=== PATIENT | female | born 1955 | race Caucasian/White ===

== ENCOUNTER 2017-11-05 16:16 | Observation (INO) ==
--- NOTE | 2017-11-05 16:38 | Emergency Department Note ---
Disposition Clinical Impression: Vertigo Disposition: Admitted As Inpatient Condition: Good General Adult HPI - General Time Seen by Provider: 11/05/17 16:18 Source: patient Mode of arrival: ambulatory Limitations: no limitations Nursing Notes Reviewed: Yes Vital Signs Reviewed: Yes - History of Present Illness HPI Narrative: 62-year-old female persists for evaluation of dizziness. Patient does have a history of acid reflux and GERD and follows with GI. States she woke up 4:00 this morning with room spinning type dizziness. Patient stated that the dizziness appear to be worse with movement and positioning. Noted to occur when standing. Patient reports of nausea but no vomiting. Patient has baseline nausea given her GI symptoms. Patient denies any chest pain. Patient denies any fevers. No specific prodromal URI prior to. No tenderness. No ear pain. No headache or focal weakness/numbness/tingling. Patient does not have a history of these symptoms in the past. - Related Data Allergies Allergy/AdvReac Type Severity Reaction Status Date / Time No Known Allergies Allergy Verified 11/05/17 17:00 All systems ED: reviewed and negative except as stated. Constitutional: Reports: chills. Denies: fever Cardiovascular: Denies: chest pain Respiratory: Denies: cough Gastrointestinal: Reports: nausea. Denies: abdominal pain, vomiting Past Medical History - Past Medical History Source: patient Medical history: Reports: arthritis, GERD Surgical history: Reports: cholecystectomy, herniorrhaphy, orthopedic, other Psychiatric history: Reports: no psych history - Social History Smoking Status: Current every day smoker Physical Exam - General Limitations: no limitations General appearance: alert, in no apparent distress - Head Head exam: atraumatic, normocephalic, normal inspection - Eye Eye exam: Present: normal appearance, PERRL, EOMI. Absent: nystagmus - ENT ENT exam: normal exam, normal oropharynx, mucous membranes moist - Neck Neck exam: Present: normal inspection - Chest Chest inspection: Present: normal inspection, symmetric chest wall rise - Respiratory Respiratory exam: Present: normal lung sounds bilaterally. Absent: respiratory distress - Cardiovascular Cardiovascular exam: Present: regular rate, normal rhythm. Absent: systolic murmur - Abdominal Exam Abdominal exam: Present: soft, Non-Tender - Extremities Exam Extremities exam: Present: normal inspection. Absent: pedal edema - Expanded Lower Extremity Exam Neurovascular/Tendon exam: Present: normal capillary refill - Neurological Exam Neurological exam: Present: alert, oriented X3, CN II-XII intact - Expanded Neurological Exam Patient oriented to: Present: person, place, time Speech: Present: fluid speech Cranial nerves: EOM function (II, III, IV, ): Normal, facial sensation (V): Normal, facial palsy (VII): Normal, spinal accessory function (XI): Normal, tongue deviation (XII): Normal Cerebellar function: finger to nose: Normal (Slow to respond) Motor strength - LUE: 5/5 Motor strength - RUE: 5/5 Motor strength - LLE: 5/5 Motor strength - RLE: 5/5 Sensory exam upper extremity: light touch: Normal Sensory exam lower extremity: light touch: Normal Coma Scale Eye Opening: Spontaneous Coma Scale Motor Response: Obeys Commands Coma Scale Verbal Response: Oriented Coma Scale Total: 15 - Skin Skin exam: Present: warm, dry, intact, normal color Course Course Narrative: Patient seen and examined. Patient appears in no acute distress. Vital stable. Patient's initial complaint was concerning for likely perhaps peripheral vertigo with positioning however on exam cannot necessarily reproduce said symptoms. Patient will be treated with meclizine as well basic labs and troponin given her history of nausea and reflux. CT scan of the head was also obtained. Disposition pending. Vital Signs Temperature 97.9 F 11/05/17 16:55 Pulse Rate 69 11/05/17 16:55 Respiratory Rate 18 11/05/17 16:55 Blood Pressure 146/97 11/05/17 16:55 O2 Sat by Pulse Oximetry 95 11/05/17 16:55 Temperature 97.9 F 11/05/17 16:55 Pulse Rate 66 11/05/17 18:00 Respiratory Rate 18 11/05/17 18:00 Blood Pressure 136/83 11/05/17 18:00 O2 Sat by Pulse Oximetry 100 11/05/17 18:00 Oxygen Delivery Oxygen Delivery Room Air Medical Decision Making - MDM Narrative Medical decision making narrative: Patient was treated symptomatically and ED with no significant improvement. Patient does have findings of chronic microvascular ischemic changes on head CT. Given the patient's hypertension is symptoms. The patient will be admitted for further evaluation with likely MRI as well as optimal medical management. Patient is agreeable with this plan of care. - Lab Data Lab results reviewed: Yes I reviewed the patient's lab results. Result diagrams: 11/05/17 16:40 11/05/17 16:40 Lab Results 11/05/17 11/05/17 Range/Units 16:40 16:40 WBC 6.4 (4.3-11.1) K/mcL RBC 5.04 H (3.82-4.97) M/mcL Hgb 14.3 (11.5-15.4) g/dL Hct 43.7 (35.3-44.9) % MCV 86.7 (83.0-100.0) fL MCH 28.4 (28.0-33.3) pg MCHC 32.7 (31.6-35.5) g/dL RDW 15.5 H (11.5-14.5) % Plt Count 219 (140-400) K/mcL MPV 9.1 L (9.4-12.4) fL Immature Gran % 0.3 (0-4) % Seg Neutrophils % 72.7 % Lymphocytes % 20.9 % Monocytes % 5.1 % Eosinophils % 0.5 % Basophils % 0.5 % Neutrophils # 4.7 (1.6-8.9) K/mcL Lymphocytes # 1.3 (0.6-4.6) K/mcL Monocytes # 0.3 (0.0-1.3) K/mcL Eosinophils # 0.0 (0.0-0.6) K/mcL Basophils # 0.0 (0.0-0.2) K/mcL Sodium 137 (136-145) mEq/L Potassium 4.1 (3.5-5.1) mEq/L Chloride 106 (98-107) mEq/L Carbon Dioxide 26 (23-29) mEq/L BUN 10 (8-23) mg/dL Creatinine 0.93 (0.60-1.20) mg/dL Est GFR ( Amer) > 60 (> 60) Est GFR (Non-Af Amer) > 60 (> 60) BUN/Creatinine Ratio 11 (6-26) Glucose 120 H (70-105) mg/dL Calculated Osmolality 284 (280-300) Calcium 9.2 (8.6-10.3) mg/dL Troponin I < 0.03 (< 0.04) ng/mL - Radiology Data Radiology results reviewed: Yes I reviewed the patient's radiology results. Head CT 11/05/17 16:32 IMPRESSION: No acute intracranial abnormality. Diffuse atrophic changes with findings suggesting chronic microvascular ischemia D/ / Eusebio Mckee MD / Eusebio Mckee MD Interpreting Provider: Eusebio Mckee MD - EKG Data EKG #1 EKG attestation: Yes I reviewed and interpreted this EKG. EKG shows normal: sinus rhythm Rate: normal Rhythm: NSR T wave inversions noted in: aVR, v1 Interpretation: no acute changes S.B.A.Seven - S.B.AArethaRAretha Situation: Demographics Background: Presenting Complaint Assessment: Vital Signs, Course and respsone to treatment, Patient/Family Expectation Recommendation: Barrier(s) to disposition, Recommendation based on pending studies, treatments, or consults S.B.A.RAretha Report Given to: Espinoza Barth Repor Time: 18:34
[2017-11-05 17:10] LABS: Basophils % 0.5 %; Eosinophils % 0.5 %; Hematocrit 43.7 % (35.3-44.9); Hemoglobin 14.3 g/dL (11.5-15.4); Immature Granulocytes % 0.3 % (0-4); Lymphocytes # 1.3 K/mcL (0.6-4.6); Lymphocytes % 20.9 %; Mean Corpuscular HGB Conc 32.7 g/dL (31.6-35.5); Mean Corpuscular Hemoglobin 28.4 pg (28.0-33.3); Mean Corpuscular Volume 86.7 fL (83.0-100.0); Mean Platelet Volume 9.1 fL (9.4-12.4); Monocytes # 0.3 K/mcL (0.0-1.3); Monocytes % 5.1 %; Neutrophils # 4.7 K/mcL (1.6-8.9); Platelet Count 219 K/mcL (140-400); Red Blood Count 5.04 M/mcL (3.82-4.97); Red Cell Distribution Width 15.5 % (11.5-14.5); Segmented Neutrophils % 72.7 %
[2017-11-05] MEDS ORDERED: Scopolamine Patch 1.5 MG PATCH.TD72 TD ONE (17:21)
[2017-11-05 17:33] LABS: Troponin I < 0.03 ng/mL (< 0.04)
[2017-11-05 17:35] LABS: BUN/Creatinine Ratio 11 (6-26); Blood Urea Nitrogen 10 mg/dL (8-23); Calcium 9.2 mg/dL (8.6-10.3); Carbon Dioxide 26 mEq/L (23-29); Chloride 106 mEq/L (98-107); Glucose 120 mg/dL (70-105); Osmolality,Calculated 284 (280-300); Potassium 4.1 mEq/L (3.5-5.1); Sodium 137 mEq/L (136-145); eGFR For Non-African Americans > 60 (> 60)
--- NOTE | 2017-11-05 18:19 | Emergency Department Note ---
Disposition Clinical Impression: Vertigo Disposition: Admitted As Inpatient Condition: Good Referrals: Keith Garibay MD [Primary Care Provider] - General Adult HPI - General Chief complaint: ED Dizziness Time Seen by Provider: 11/05/17 16:18 Source: patient Mode of arrival: ambulatory Limitations: no limitations - History of Present Illness Pain Scale: 0 - Related Data Allergies Allergy/AdvReac Type Severity Reaction Status Date / Time No Known Allergies Allergy Verified 11/05/17 17:00 Constitutional: Reports: chills. Denies: fever Cardiovascular: Denies: chest pain Respiratory: Denies: cough Gastrointestinal: Reports: nausea. Denies: abdominal pain, vomiting Past Medical History - Past Medical History Medical history: Reports: arthritis, GERD Surgical history: Reports: cholecystectomy, herniorrhaphy, orthopedic, other Psychiatric history: Reports: no psych history - Social History Smoking Status: Current every day smoker Smokeless Tobacco Status: No (1 pack) Alcohol use: Reports: rarely Drug use: Reports: none Physical Exam - General Limitations: no limitations General appearance: alert, in no apparent distress Course Vital Signs Temperature 97.9 F 11/05/17 16:55 Pulse Rate 69 11/05/17 16:55 Respiratory Rate 18 11/05/17 16:55 Blood Pressure 146/97 11/05/17 16:55 O2 Sat by Pulse Oximetry 95 11/05/17 16:55 Temperature 97.9 F 11/05/17 16:55 Pulse Rate 66 11/05/17 18:00 Respiratory Rate 18 11/05/17 18:00 Blood Pressure 136/83 11/05/17 18:00 O2 Sat by Pulse Oximetry 100 11/05/17 18:00 Oxygen Delivery Oxygen Delivery Room Air Medical Decision Making - Lab Data Result diagrams: 11/05/17 16:40 11/05/17 16:40 Lab Results 11/05/17 11/05/17 Range/Units 16:40 16:40 WBC 6.4 (4.3-11.1) K/mcL RBC 5.04 H (3.82-4.97) M/mcL Hgb 14.3 (11.5-15.4) g/dL Hct 43.7 (35.3-44.9) % MCV 86.7 (83.0-100.0) fL MCH 28.4 (28.0-33.3) pg MCHC 32.7 (31.6-35.5) g/dL RDW 15.5 H (11.5-14.5) % Plt Count 219 (140-400) K/mcL MPV 9.1 L (9.4-12.4) fL Immature Gran % 0.3 (0-4) % Seg Neutrophils % 72.7 % Lymphocytes % 20.9 % Monocytes % 5.1 % Eosinophils % 0.5 % Basophils % 0.5 % Neutrophils # 4.7 (1.6-8.9) K/mcL Lymphocytes # 1.3 (0.6-4.6) K/mcL Monocytes # 0.3 (0.0-1.3) K/mcL Eosinophils # 0.0 (0.0-0.6) K/mcL Basophils # 0.0 (0.0-0.2) K/mcL Sodium 137 (136-145) mEq/L Potassium 4.1 (3.5-5.1) mEq/L Chloride 106 (98-107) mEq/L Carbon Dioxide 26 (23-29) mEq/L BUN 10 (8-23) mg/dL Creatinine 0.93 (0.60-1.20) mg/dL Est GFR ( Amer) > 60 (> 60) Est GFR (Non-Af Amer) > 60 (> 60) BUN/Creatinine Ratio 11 (6-26) Glucose 120 H (70-105) mg/dL Calculated Osmolality 284 (280-300) Calcium 9.2 (8.6-10.3) mg/dL Troponin I < 0.03 (< 0.04) ng/mL Attestation Statement - Attestation Attestation: I examined this patient and my medical decision-making was reviewed with the Resident Physician. I agree with the documented findings, disposition and treatment plan as described except to the extent set forth below. 62 year old female presents to the ED with complaints of vertigo that started when she woke up this morning at 0400 and came into our ED for evlaution. WE have done a TIA wokrup for central vs peripheral vertigo and her symptomst have not resolved with scoploamine or antivert. HCT is negative. WE will admit to medicine for TIA r/o CVA especially for a MRI for posterior stroke
[2017-11-05] MEDS ORDERED: Aspirin 325 MG TABLET PO ONE (18:34)
[2017-11-05] MEDS ORDERED: Aspirin 81 MG TAB.CHEW ONE (18:40)
[2017-11-05] MEDS ORDERED: Acetaminophen 325 MG TABLET PO PRN (20:42)
[2017-11-05] MEDS ORDERED: Naloxone 0.4 MG/ML INJ IVP PRN (20:42)
--- NOTE | 2017-11-05 21:12 | Internal Med History&Physical ---
Date of Encounter: 11/05/17 Time of Encounter: 20:54 Internal Medicine - H&P: HPI Chief complaint: vertigo Admitted From: Emergency Dept Plans for Post Hospital Care: Home History of present illness: Ms. Fernandes is a 62 year old female chronic benzodiazepines dependence presents for vertigo described as room spinning. Onset upon waking this morning not improved with rest and aggravated by movement especially head rotation. Associated symptoms of nausea, vomiting and change in gait requiring her to hold onto evans. In ED, vitals stable and head CT showed no acute process but chronic atrophy suggestive of microvasular disease. NIH stroke protocol was not initiated. Treated with scopolamine patch and meclizine with out improvement. She denies any symptoms of viral illness including head or chest congestion , shortness of breath, or fever. She denies weakness, decrease hearing, numbness, confusion or speech changes. Jhonny chest pain but always has palpitations. She has recurrent headaches most days without photophobia for which she takes ibuprofen near daily with moderate relief. She is concerned that she missed a dose of xanax and will start to withdrawal- takes 1 mg QID. PMHx includes GERD for which she follows with GI and anxiety & depression followed with Dr Gore in psychiatry. She smokes half pack with 15 pk yr, occasional EtOH 1-2x/month with 2-4 drinks at a time. Denies illicit drug use. FmHx family rheumatic fever and [place] at 59, no history of DM or stroke. Surgical hx of gastric bypass, cholecystectomy and tubal ligation. Past Med Surg Social Fam HX - Past Medical History Medical history: arthritis, GERD Psychiatric history: no psych history - Past Surgical History Surgical History: cholecystectomy, herniorrhaphy, orthopedic, other Additional surgical history: GASTIC BYPASS - Social History Smoking Status: Current every day smoker Packs per day: 1 Smokeless Tobacco Status: No Alcohol use: rarely Drug use: none - Family History Mother Adopted: [place]: TOI JULIEN Family Member Ethnicity: Non- Living Status: Age at : 76 Cause of : BREAST CANCER Hx Family Cardiac Disorders: No Hx Family Respiratory Disorders: No Hx Family Cancer: Yes Hx Family GI Disorders: No Hx Family Genitourinary Disorders: No Hx Family Endocrine Disorder: No Hx Family Musculoskeletal Disorders: No Hx Family Neuromuscular Disorders: No Hx Family Neurologic Disorders: No Hx Family HEENT Disorders: No Hx Family Autoimmune Disorders: No Hx Family Reproductive Disorders: No Hx Family Psychosocial Disorders: No Hx Family Medical Disorders: No Internal Medicine - H&P: Meds ALPRAZolam [Xanax 1 MG Tablet] 1 mg PO QID PRN 11/05/17 [History] Ergocalciferol (VITAMIN D2) [Vitamin D2] 50,000 unit PO QWEEK 11/05/17 [History] Pantoprazole Sodium [Protonix] 40 mg PO DAILY 11/05/17 [History] Ranitidine HCl [Zantac] 300 mg PO HS 11/05/17 [History] 3 Allergy/AdvReac Type Severity Reaction Status Date / Time No Known Allergies Allergy Verified 11/05/17 17:00 All Systems PM: A 10-system review of systems was performed and is negative for pertinent findings except as documented above in the HPI. - Constitutional Constitutional: no fever(s), no falls - EENT Eyes: change in vision, no blurry vision, no loss of vision, no photophobia Additional comments: vertigo - Cardiovascular Cardiovascular ROS IM: palpitations, no chest pain, no dyspnea, no lightheadedness, no syncope - Respiratory Respiratory: no cough, no dyspnea, no wheezing, no chest congestion, no excessive phlegm production - Gastrointestinal Gastrointestinal: nausea, no cramping, no diarrhea, no vomiting - Genitourinary Genitourinary: no dysuria, no hematuria, no urinary frequency - Musculoskeletal Musculoskeletal ROS IM: no muscle weakness, no numbness, no tingling - Integumentary Integumentary IM: no rash - Neurological Neurological ROS: disequilibrium, headache(s), vertigo, no abnormal hearing, no abnormal speech, no confusion, no memory loss, no numbness, no paresthesias, no weakness - Psychiatric Psychiatric: anxiety, depression, panic attacks - Constitutional Vitals: Temp Pulse Resp BP Pulse Ox 98.0 F 58 19 145/94 97 11/05/17 19:23 11/05/17 19:23 11/05/17 19:23 11/05/17 19:23 11/05/17 19:23 General appearance: Present: cooperative, mild distress, A&O X 3, obese, answers questions appropriately Exam: exam limited due to vomiting, Dikes Hallpike Maneuver deferred - Head Head exam: Present: atraumatic, normocephalic - ENT ENT exam: Present: mucous membranes dry, normal oropharynx - Neck Neck exam general surgery: Absent: full ROM, lymphadenopathy, tenderness, nuchal rigidity Additional comments: roppy hypertoncity with decrease rotation - Respiratory Respiratory exam: Present: wheezes. Absent: rales, respiratory distress Additional comments: wheeze lower left lobe - Cardiovascular Cardiovascular exam: Present: RRR. Absent: gallop, rubs - GI/Abdominal GI/Abdominal exam: Present: distended, normal bowel sounds. Absent: guarding, mass, tenderness - Extremities Exam Extremities exam: Present: full ROM, pedal edema, radial pulses palpable and symmetrical. Absent: calf tenderness, tenderness Additional comments: edema +1/4 above ankles worse in left - Neurological Exam Neurological exam: Present: CN II-XII intact, no focal deficits, strengths equal and symetr throughout. Absent: motor sensory deficit, pronater drift, facial droop, speech deficit Additional comments: Head impulse testing inconclusive due to neck tension and decrease mobility on rotation, horizontal nystagmus beat to left, no vertigo nystagmus, test of skew normal - Expanded Neurological Exam Cerebellar function: finger to nose: Normal, heel to [place]: Normal - Psychiatric Psychiatric exam: Present: anxious, normal affect. Absent: agitated Additional comments: slow speech Internal Med - H&P Results - Labs CBC & Chem 7: 11/05/17 16:40 11/05/17 16:40 - Assessment and plan (1) Peripheral vertigo Current Visit: Yes Status: Acute Assessment and plan: HINTs testing suggests peripheral vertigo with horizontal nystagmus and normal test of skew- most likely BPV but DDX includes vestibular migraine and vestibular neuritises . Low suspicion of cerebellar stroke but order head MRI to confirm and evaluate for microvasular disease seen on CT. - MRI head - consider repeat attempt at Dikes Hallpike maneuver once symptomatic control - consider neurology consult - consult PT for vestibular and BPV repositioning - benzodiazapine are indicated for peripheral vertigo but already taking chronically - continue scopolamine patch - antivert prn Qualifiers: Laterality: left Qualified Code(s): H81.392 - Other peripheral vertigo, left ear (2) GERD (gastroesophageal reflux disease) Current Visit: Yes Status: Acute Assessment and plan: continue home mediations and avoid all NSAIDs (3) Anxiety Current Visit: Yes Status: Acute Assessment and plan: Pharmacy advised longer acting by converting from Xanax 1 mg QID to Ativan 2 mg q6hr as she has chronic benzodiazapine dependence. Benzo are indicated to treat peripheral vertigo but we would like to continue home dose set by out patient psychiatric until MRI results. - continue home dose Xanax 1 mg QID - consider changing to Ativan (4) DVT prophylaxis Current Visit: Yes Status: Acute Assessment and plan: heparin SQ - Time Spent With Patient Total time spent is greater than 50% in coordination of care (as documented) at patient's floor/unit and/or counseling patient: Greater than 35 minutes
[2017-11-05] MEDS: 0.9 % Sodium Chloride 1,000 ML IVC SCH (21:30)
[2017-11-05] MEDS: Famotidine 20 MG TABLET PO SCH (21:30)
[2017-11-05] MEDS: ALPRAZolam 1 MG TABLET PO PRN (22:20)
[2017-11-05] MEDS: *HR* Heparin 5,000 UNIT/ML VIAL SQ SCH (22:20)
[2017-11-06] MEDS ORDERED: *HR* LORazepam 1 MG TABLET PO SCH
[2017-11-06 04:51] LABS: Basophils % 0.3 %; Eosinophils # 0.1 K/mcL (0.0-0.6); Eosinophils % 2.2 %; Hematocrit 38.7 % (35.3-44.9); Hemoglobin 12.7 g/dL (11.5-15.4); Immature Granulocytes % 0.2 % (0-4); Lymphocytes # 3.1 K/mcL (0.6-4.6); Lymphocytes % 47.4 %; Mean Corpuscular HGB Conc 32.8 g/dL (31.6-35.5); Mean Corpuscular Hemoglobin 28.2 pg (28.0-33.3); Mean Corpuscular Volume 85.8 fL (83.0-100.0); Mean Platelet Volume 9.2 fL (9.4-12.4); Monocytes # 0.5 K/mcL (0.0-1.3); Monocytes % 7.4 %; Neutrophils # 2.8 K/mcL (1.6-8.9); Platelet Count 208 K/mcL (140-400); Red Blood Count 4.51 M/mcL (3.82-4.97); Red Cell Distribution Width 15.5 % (11.5-14.5); Segmented Neutrophils % 42.5 %
[2017-11-06 05:12] LABS: Alanine Aminotransferase 8 Units/L (7-52); Albumin 3.6 g/dL (3.5-5.7); Albumin/Globulin Ratio 1.6 (1.1-2.2); Alkaline Phosphatase 83 Units/L (34-104); Aspartate Amino Transferase 11 Units/L (13-39); BUN/Creatinine Ratio 10 (6-26); Bilirubin,Total 0.4 mg/dL (0.3-1.0); Blood Urea Nitrogen 8 mg/dL (8-23); Calcium 8.7 mg/dL (8.6-10.3); Carbon Dioxide 24 mEq/L (23-29); Chloride 111 mEq/L (98-107); Globulin 2.3 g/dL (2.4-3.5); Glucose 103 mg/dL (70-105); Osmolality,Calculated 289 (280-300); Potassium 4.2 mEq/L (3.5-5.1); Sodium 140 mEq/L (136-145); Total Protein 5.9 g/dL (6.4-8.9); eGFR For Non-African Americans > 60 (> 60)
[2017-11-06] MEDS: *HR* Heparin 5,000 UNIT/ML VIAL SQ SCH ×3 (06:06→20:18)
[2017-11-06] MEDS: 0.9 % Sodium Chloride 1,000 ML IVC SCH ×2 (07:51→20:22)
[2017-11-06] MEDS: Ondansetron 4 MG/2 ML VIAL IVP PRN (13:11)
[2017-11-06] MEDS: ALPRAZolam 1 MG TABLET PO PRN ×2 (13:16→17:15)
--- NOTE | 2017-11-06 17:47 | Electrocardiograph Report ---
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
--- NOTE | 2017-11-06 19:38 | Internal Med Progress Note ---
Hospitalist Progress Note - Encounter Date of Encounter: 11/06/17 Time of Encounter: 11:00 - Subjective Interval History: Patient was seen and examined at bedside continues to experience vertigo as well as nausea - Exam Vitals: Temp Pulse Resp BP Pulse Ox 97.9 F 104 16 93/61 97 11/06/17 18:17 11/06/17 18:17 11/06/17 18:17 11/06/17 18:17 11/06/17 18:17 Exam: Gen. appearance cooperative alert and oriented 3 obese Head exam atraumatic normocephalic ENT exam mucous membranes dry normal oropharynx Neck exam absent; full ROS lymphadenopathy tenderness nuchal rigidity Respiratory CTA Cardiovascular regular rate and rhythm no rubs or clicks or gallops noted Abdominal abdomen soft nontender no guarding mass or tenderness Extremity range of motion pedal edema Neurological exam cranial nerves II through XII are intact and focal deficit strength equal and symmetrical throughout. No motor sensory deficits coronary drip facial droop speech deficit no nystagmus. Cerebral function finger to nose normal heel to [place] normal Psychiatric exam normal affect - Assessment and Plan (1) Vertigo Current Visit: Yes Status: Acute Assessment and Plan: Norma-Hallpike maneuver completed-no nystagmus noted Await MRI results of head Consider neurology consult PT consult for vestibular Continue with scopolamine patch Antivert when necessary (2) Anxiety Current Visit: Yes Status: Acute Assessment and Plan: Continue with home medications-Xanax 1 mg 4 times a day (3) GERD (gastroesophageal reflux disease) Current Visit: Yes Status: Acute Assessment and Plan: Continue with home medications-Prilosec (4) DVT prophylaxis Current Visit: Yes Status: Acute Assessment and Plan: Heparin subcutaneous - Time Spent with Patient Total time spent is greater than 50% in coordination of care (as documented) at patient's floor/unit and/or counseling patient: Internal Medicine: Result - Labs CBC & Chem 7: 11/06/17 04:15 11/06/17 04:15 Labs: Short CBC 11/06/17 Range/Units 04:15 WBC 6.5 (4.3-11.1) K/mcL Hgb 12.7 D (11.5-15.4) g/dL Hct 38.7 (35.3-44.9) % Plt Count 208 (140-400) K/mcL Neutrophils # 2.8 (1.6-8.9) K/mcL BMP 11/06/17 04:15 Sodium 140 Potassium 4.2 Chloride 111 H Carbon Dioxide 24 BUN 8 Creatinine 0.78 Glucose 103 Calcium 8.7 Liver Function 11/06/17 Range/Units 04:15 Total Bilirubin 0.4 (0.3-1.0) mg/dL AST 11 L (13-39) Units/L ALT 8 (7-52) Units/L Alkaline Phosphatase 83 (34-104) Units/L Albumin 3.6 (3.5-5.7) g/dL - Impressions Impressions Brain MRI 11/06/17 00:17 IMPRESSION: Multifocal small-vessel ischemic change bilaterally. There is no acute infarct or hemorrhage. D/ / Osei Griffith / Osei Griffith Interpreting Provider: Osei Griffith Consult Discharge Plan - Plan Referrals: Keith Garibay MD [Primary Care Provider] - 11/13/17 9:15 am (3) GERD (gastroesophageal reflux disease) Qualifiers: Esophagitis presence: esophagitis presence not specified Qualified Code(s): K21.9 - Gastro-esophageal reflux disease without esophagitis
[2017-11-06] MEDS: Famotidine 20 MG TABLET PO SCH (20:23)
[2017-11-07] MEDS: 0.9 % Sodium Chloride 1,000 ML IVC SCH ×2 (05:07→14:24)
[2017-11-07] MEDS: *HR* Heparin 5,000 UNIT/ML VIAL SQ SCH ×3 (05:08→20:04)
--- NOTE | 2017-11-07 07:17 | Discharge Summary ---
- NOTES TO OUTPATIENT PROVIDER Notes to Outpatient Provider: She had abnormal stress test underwent cardiac catheterization cardiology recommending medical management and risk reduction. She will follow up with cardiology as an outpatient Date of Encounter: 11/07/17 Time of Encounter: 07:15 - Discharge Diagnosis (1) Vertigo Status: Acute (2) Anxiety Status: Acute (3) GERD (gastroesophageal reflux disease) Status: Acute Qualifiers: Esophagitis presence: esophagitis presence not specified Qualified Code(s) : K21.9 - Gastro-esophageal reflux disease without esophagitis (4) DVT prophylaxis Status: Acute Hospital course: Ms. Fernandes is a 62 year old female - Time Spent with Patient Total time spent providing and/or coordinating discharge services: - Discharge Medications Home Medications: ALPRAZolam [Xanax 1 MG Tablet] 1 mg PO QID PRN 11/05/17 [History] Ergocalciferol (VITAMIN D2) [Vitamin D2] 50,000 unit PO QWEEK 11/05/17 [History] Pantoprazole Sodium [Protonix] 40 mg PO DAILY 11/05/17 [History] Ranitidine HCl [Zantac] 300 mg PO HS 11/05/17 [History] Allergies/Adverse Reactions: 3 Allergy/AdvReac Type Severity Reaction Status Date / Time No Known Allergies Allergy Verified 11/05/17 17:00 Date of admission: 11/05/17 18:27 Primary care physician: Keith Garibay MD Consults: 11/05/17 20:43 Consult to Physical Therapy [CONS] Routine Comment: Evaluate, develop and implement POC Reason for Consult: BPV - if you have anyone who does vestibular therapy Does patient have active BEDREST order?: No Is patient medically & hemodynamically stable?: Yes Patient assessed for mobility or mobilized this visit?: No 11/05/17 20:44 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 [CONS] Routine Reason for SW Consult: may need out pateint PT that specializes in vestibular and BPV 11/06/17 15:35 Consult to Occupational Therapy [CONS] Routine Comment: Evaluate, develop and implement POC Reason for Consult: WEAKNESS, POSITIONAL VERTIGO Does patient have active BEDREST order?: No Is patient medically & hemodynamically stable?: Yes Discharging clinician: Nikky Mcmullen Anticipated date of discharge: 11/07/17 - Constitutional Vitals: Temp Pulse Resp BP Pulse Ox 99.0 F 54 16 139/81 96 11/06/17 22:40 11/06/17 22:40 11/06/17 22:40 11/07/17 01:54 11/06/17 22:40 General appearance: Present: cooperative, mild distress, A&O X 3, obese, answers questions appropriately - Patient Status Condition: Good - Discharge Instructions Follow Up With: Keith Garibay MD [Primary Care Provider] - 11/13/17 9:15 am Forms: ED Satisfaction Letter
[2017-11-07] MEDS: ALPRAZolam 1 MG TABLET PO PRN ×2 (08:35→16:11)
--- NOTE | 2017-11-07 09:41 | Internal Med Progress Note ---
Hospitalist Progress Note - Encounter Date of Encounter: 11/07/17 Time of Encounter: 09:34 - Subjective Interval History: Patient was seen and examined at bedside continues to complain of vertigo and has difficulty ambulating MRI ok will consult neurology - Exam Vitals: Temp Pulse Resp BP Pulse Ox 98.3 F 54 18 165/97 95 11/07/17 07:37 11/07/17 07:37 11/07/17 07:37 11/07/17 07:37 11/07/17 08:30 Exam: Gen. appearance cooperative alert and oriented 3 obese Head exam atraumatic normocephalic ENT exam mucous membranes dry normal oropharynx Neck exam absent; full ROS lymphadenopathy tenderness nuchal rigidity Respiratory CTA Cardiovascular regular rate and rhythm no rubs or clicks or gallops noted Abdominal abdomen soft nontender no guarding mass or tenderness Extremity range of motion pedal edema Neurological exam cranial nerves II through XII are intact and focal deficit strength equal and symmetrical throughout. facial droop speech deficit no nystagmus. Cerebral function finger to nose normal heel to [place] normal Psychiatric exam normal affect - Assessment and Plan (1) Vertigo Current Visit: Yes Status: Acute Assessment and Plan: Godfrey-Hallpike maneuver completed-no nystagmus noted Await MRI results of head neurology consult PT consult for vestibular Continue with scopolamine patch Antivert when necessary (2) Anxiety Current Visit: Yes Status: Acute Assessment and Plan: Continue with home medications-Xanax 1 mg 4 times a day (3) GERD (gastroesophageal reflux disease) Current Visit: Yes Status: Acute Assessment and Plan: Continue with home medications-Prilosec (4) DVT prophylaxis Current Visit: Yes Status: Acute Assessment and Plan: Heparin subcutaneous - Time Spent with Patient Total time spent is greater than 50% in coordination of care (as documented) at patient's floor/unit and/or counseling patient: Internal Medicine: Result - Labs CBC & Chem 7: 11/06/17 04:15 11/06/17 04:15 - Impressions Impressions Brain MRI 11/06/17 00:17 IMPRESSION: Multifocal small-vessel ischemic change bilaterally. There is no acute infarct or hemorrhage. D/ / Osei Griffith / Osei Griffith Interpreting Provider: Osei Griffith Consult Discharge Plan - Plan Referrals: Keith Garibay MD [Primary Care Provider] - 11/13/17 9:15 am (3) GERD (gastroesophageal reflux disease) Qualifiers: Esophagitis presence: esophagitis presence not specified Qualified Code(s): K21.9 - Gastro-esophageal reflux disease without esophagitis
[2017-11-07] MEDS ORDERED: MethylPREDNISolone 40 MG/ML VIAL IVP ONE (09:56)
[2017-11-07] MEDS ORDERED: Isovue-370 500 ML INFUS..BTL IV ONE (09:57)
[2017-11-07] MEDS: Ondansetron 4 MG/2 ML VIAL IVP PRN (11:31)
--- NOTE | 2017-11-07 11:42 | Neurology - Consult Note ---
<Saurav العراقي P - Last Filed: 11/07/17 12:15> Date of Encounter: 11/07/17 Time of Encounter: 12:00 Assessment and Plan (1) Vertigo Current Visit: Yes Status: Acute She has vertigo with room spinning for last 3-4 days She states that she still has vertigo , but better than before She vomited yesterday and feel nauseated MRI : no acute infarct or blood clot,Multifocal small-vessel ischemic change bilateral CT head :Diffuse atrophic changes with findings suggesting chronic microvascular ischemia Plan : CTA head and neck History of Present Illness Chief complaint: Verigo HPI: Ms. Fernandes is a 62 year old female with past medical history of benzodiazepines dependence admitted to [facility] via ED for vertigo and she describes it as room spinning. She stated that it started upon waking this morning 3 days back , it was not improved with any maneuver and aggravated by movement of head . She admits other associated symptoms like nausea, vomiting and difficulty to balance her body . She admits intermittent headache and photophobia. She denies any symptoms of viral illness chest congestion , shortness of breath, or fever. She denies , illicit drug uses, weakness, decrease hearing, numbness, confusion or speech changes. Vitals: 98.1 Pul 56, BP 136/76, sat 95% Labs; WBC 6.5, Na 140, K 4.2 , glucose 103, BUN 8 creatinine 0.78 MRI brain:Multifocal small-vessel ischemic change bilaterally. There is no acute infarct or hemorrhage. CT head : Diffuse atrophic changes with findings suggesting chronic microvascular ischemia Past Med Surg Social Fam HX - Past Medical History Medical history: arthritis, GERD Psychiatric history: no psych history - Past Surgical History Surgical History: cholecystectomy, herniorrhaphy, orthopedic, other Additional surgical history: GASTIC BYPASS - Social History Smoking Status: Current every day smoker Packs per day: 1 Smokeless Tobacco Status: No Alcohol use: rarely Drug use: none - Family History Mother Adopted: [place]: TOI JULIEN Family Member Ethnicity: Non- Living Status: Age at : 76 Cause of : BREAST CANCER Hx Family Cardiac Disorders: No Hx Family Respiratory Disorders: No Hx Family Cancer: Yes Hx Family GI Disorders: No Hx Family Genitourinary Disorders: No Hx Family Endocrine Disorder: No Hx Family Musculoskeletal Disorders: No Hx Family Neuromuscular Disorders: No Hx Family Neurologic Disorders: No Hx Family HEENT Disorders: No Hx Family Autoimmune Disorders: No Hx Family Reproductive Disorders: No Hx Family Psychosocial Disorders: No Hx Family Medical Disorders: No Medications and Allergies ALPRAZolam [Xanax 1 MG Tablet] 1 mg PO QID PRN 11/05/17 [History] Ergocalciferol (VITAMIN D2) [Vitamin D2] 50,000 unit PO QWEEK 11/05/17 [History] Pantoprazole Sodium [Protonix] 40 mg PO DAILY 11/05/17 [History] Ranitidine HCl [Zantac] 300 mg PO HS 11/05/17 [History] 3 Allergy/AdvReac Type Severity Reaction Status Date / Time No Known Allergies Allergy Verified 11/05/17 17:00 All Systems: The remainder of the systems were reviewed and are negative Physical Examination - Vital Signs Vital Signs: Initial Vital Signs Temp Pulse Resp BP Pulse Ox 97.9 F 69 18 146/97 95 11/05/17 16:55 11/05/17 16:55 11/05/17 16:55 11/05/17 16:55 11/05/17 16:55 - Constitutional General appearance: comfortable - Neurologic Sensorimotor examination: intact Detailed motor examination: full strength in all major muscle groups Motor examination - right side: 5/5: deltoids, biceps, triceps, wrist flexion, wrist extension, 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, hip flexors, tibialis Anterior, quadriceps, toe extension (EHL), plantarflexion Motor examination - left side: 5/5: deltoids, biceps, triceps, wrist flexion, wrist extension, hip flexors, 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, quadriceps, tibialis Anterior, toe extension (EHL), plantarflexion Detailed sensory examination: intact Reflex and gait examination: ataxic gate Reflexes: Biceps: 2+, Triceps: 2+, Brachioradialis: 2+, Patella: 2+, Achilles: 2 + Mental Status Examination: awake, alert, oriented to person, oriented to place, oriented to time, follows commands appropriately, answers questions appropriately, no aphasia Cranial nerve examination: PERRL, EOMI, visual summers intact Cerebellar examination: performs finger to nose and heel to [place] symmetrically without ataxia Results - Laboratory Findings CBC and BMP: 11/06/17 04:15 11/06/17 04:15 Abnormal lab findings: Abnormal lab results RDW 15.5 % (11.5-14.5) H 11/06/17 04:15 MPV 9.2 fL (9.4-12.4) L 11/06/17 04:15 Chloride 111 mEq/L (98-107) H 11/06/17 04:15 POC Glucose 113 mg/dL (70-99) H 11/05/17 18:15 AST 11 Units/L (13-39) L 11/06/17 04:15 Serum Total Protein 5.9 g/dL (6.4-8.9) L 11/06/17 04:15 Globulin 2.3 g/dL (2.4-3.5) L 11/06/17 04:15 Consult Discharge Plan - Plan Referrals: Keith Garibay MD [Primary Care Provider] - 11/13/17 9:15 am <Wander Saez I - Last Filed: 11/07/17 17:02> Date of Encounter: 11/07/17 Assessment and Plan (1) Vertigo Current Visit: Yes Status: Acute Pt was seen and examined, my medical decision was reviewed with the Resident Physician, I agree with the documented findings, disposition and treatment plas as described except to the extent set forth below Shunt was admitted admitted with significant dizziness and vertigo predominantly positional in nature also has occasional episodes of diplopia and difficulty with a gait and balance without any focal findings on neurological examination to be suggestive of posterior circulation stroke. MRI of the brain already negative for any acute infarct. Considering patient's symptoms seems more off peripheral vertigo than anything else. Suggested IV fluids as well as IV steroids. Also recommend CT angiogram of the head and neck to exclude any posterior circulation stenosis. If all negative she may benefit from outpatient vestibular rehabilitation. Wander Saez MD History of Present Illness HPI: Ms. Fernandes is a 62 year old female All Systems: The remainder of the systems were reviewed and are negative Physical Examination - Vital Signs Vital Signs: Initial Vital Signs Temp Pulse Resp BP Pulse Ox 97.9 F 69 18 146/97 95 11/05/17 16:55 11/05/17 16:55 11/05/17 16:55 11/05/17 16:55 11/05/17 16:55 Results - Laboratory Findings CBC and BMP: 11/06/17 04:15 11/06/17 04:15 Abnormal lab findings: Abnormal lab results RDW 15.5 % (11.5-14.5) H 11/06/17 04:15 MPV 9.2 fL (9.4-12.4) L 11/06/17 04:15 Chloride 111 mEq/L (98-107) H 11/06/17 04:15 POC Glucose 113 mg/dL (70-99) H 11/05/17 18:15 AST 11 Units/L (13-39) L 11/06/17 04:15 Serum Total Protein 5.9 g/dL (6.4-8.9) L 11/06/17 04:15 Globulin 2.3 g/dL (2.4-3.5) L 11/06/17 04:15
[2017-11-07] MEDS: Famotidine 20 MG TABLET PO SCH (20:04)
[2017-11-08] MEDS: *HR* Heparin 5,000 UNIT/ML VIAL SQ SCH (05:06)
[2017-11-08 07:47] VITALS: BP 149/74
[2017-11-08] MEDS: ALPRAZolam 1 MG TABLET PO PRN (09:11)
--- NOTE | 2017-11-08 10:14 | Discharge Summary ---
- NOTES TO OUTPATIENT PROVIDER Notes to Outpatient Provider: patient presented with sx of positional vertigo- meclizine as needed- outpatient vestibular therapy Date of Encounter: 11/08/17 Time of Encounter: 10:10 - Discharge Diagnosis (1) Vertigo Priority: Primary Status: Acute (2) Anxiety Priority: Secondary Status: Acute (3) GERD (gastroesophageal reflux disease) Priority: Secondary Status: Acute Qualifiers: Esophagitis presence: esophagitis presence not specified Qualified Code(s) : K21.9 - Gastro-esophageal reflux disease without esophagitis Hospital course: Ms. Fernandes is a 62 year old female past medical hx of benzodiazipine dependence arthritis GERD gastric bypass. Presented to [facility] ED with complaints of vertigo that she has been experiencing for approx 3 days. She describes the room spinning nausea vomiting and difficulty walking. Sx are aggravated by movement . CT of head was negative Labs unremarkable MRI with multifocal small vessel ischemic changes bilaterally , no acute infarct or hemorrhage. Neurology was consulted , CTA of head and neck performed . Neurology suspect peripheral vertigo Patient was offered rehab at [facility] which she declined She will benefit from vestibular PT as outpatient, we will give her meclizine prescription, Advised to follow up with PCP Advised to change position slowly . She is hemodynamcially stable and ready for discharge - Time Spent with Patient Total time spent providing and/or coordinating discharge services: - Discharge Medications Prescriptions: Meclizine [Antivert] 25 mg PO TID PRN #30 tablet PRN Reason: Dizziness Home Medications: ALPRAZolam [Xanax 1 MG Tablet] 1 mg PO QID PRN 11/05/17 [History] Ergocalciferol (VITAMIN D2) [Vitamin D2] 50,000 unit PO QWEEK 11/05/17 [History] Pantoprazole Sodium [Protonix] 40 mg PO DAILY 11/05/17 [History] Ranitidine HCl [Zantac] 300 mg PO HS 11/05/17 [History] Meclizine [Antivert] 25 mg PO TID PRN #30 tablet 11/08/17 [Rx] Allergies/Adverse Reactions: 3 Allergy/AdvReac Type Severity Reaction Status Date / Time No Known Allergies Allergy Verified 11/05/17 17:00 Date of admission: 11/05/17 18:27 Primary care physician: Keith Garibay MD Consults: 11/05/17 20:43 Consult to Physical Therapy [CONS] Routine Comment: Evaluate, develop and implement POC Reason for Consult: BPV - if you have anyone who does vestibular therapy Does patient have active BEDREST order?: No Is patient medically & hemodynamically stable?: Yes Patient assessed for mobility or mobilized this visit?: No 11/05/17 20:44 Consult to [facility] [CONS] Routine Reason for SW Consult: may need out pateint PT that specializes in vestibular and BPV 11/07/17 10:02 Consult to Neurology [CONS] Routine Consulting Provider: [facility] Reason for Consult: dizziness, ataxia Time Notified: 10:03 Call Completed: Yes Discharging clinician: Nikky Mcmullen Anticipated date of discharge: 11/08/17 - Constitutional Vitals: Temp Pulse Resp BP Pulse Ox 98.1 F 60 17 149/74 95 11/08/17 07:42 11/08/17 07:42 11/08/17 07:42 11/08/17 07:42 11/08/17 09:00 General appearance: Present: cooperative, mild distress, A&O X 3, obese, answers questions appropriately Exam: as above - Head Head exam: Present: atraumatic, normocephalic - Eye Eye exam: Present: PERRL, conjuntiva pink, sclera anicteric Pupils: Present: PERRL - Neck Neck exam general surgery: Present: supple, trachea midline. Absent: lymphadenopathy - Respiratory Respiratory exam: Present: CTAB. Absent: accessory muscle use, rales, rhonchi, wheezes - Cardiovascular Cardiovascular exam: Present: RRR, +S1, +S2. Absent: diastolic murmur, gallop, rubs, systolic murmur - GI/Abdominal GI/Abdominal exam: Present: normal bowel sounds, soft, no peritoneal signs. Absent: distended, tenderness - Extremities Exam Extremities exam: Present: warm, radial pulses palpable and symmetrical. Absent : calf tenderness, cyanotic, pedal edema - Neurological Exam Neurological exam: Present: CN II-XII intact, oriented X3, no focal deficits. Absent: pronater drift, facial droop, speech deficit - Skin Skin exam: Present: dry, intact - Patient Status Disposition: Home, Self-Care Condition: Good - Discharge Instructions Follow Up With: Keith Garibay MD [Primary Care Provider] - 11/13/17 9:15 am Forms: ED Satisfaction Letter - Diet and Activity Activity: as per physical therapy Diet: advance to your usual diet
[2017-11-08] MEDS ORDERED: Scopolamine Patch 1.5 MG PATCH.TD72 TD SCH (18:00)
== END 2017-11-08 14:00 | disposition home or self-care (01) ==
LOC: EMEROOARM 16:16 → 3ANU 16:16 → 3BNU 18:47
PROVIDERS: ADMIT Student in an Organized Health Care Education/Training Program; ATTEND Student in an Organized Health Care Education/Training Program